=== PATIENT | female | born 1970 | race Caucasian/White ===

== ENCOUNTER 2017-04-24 13:05 | Outpatient (CLI) ==
[2016-07-02 02:01] VITALS: BMI 34.9
== END 2017-04-24 13:06 | disposition home or self-care (01) ==
LOC: CAR 13:05
PROVIDERS: ATTEND Physician Assistant
DX: R40.0 Somnolence (principal)
CPT/HCPCS: 95810

== ENCOUNTER 2017-09-19 18:35 | Emergency (ER) ==
[2017-09-19 18:45] VITALS: BP 173/95; TEMP 99.4; BMI 31.8
--- NOTE | 2017-09-19 19:04 | ED.PDOC ---
General ED Provider: Dr. CHANDA DUCKWORTH-ER Chief Complaint: Shoulder Pain/Injury Stated Complaint: my shoulder hurts to move--i went to [facility] and i was told to take motrin--no hx of injury Time Seen by Physician: 19:02 Mode of Arrival: Walk-In Information Source: Patient Exam Limitations: No limitations Primary Care Provider: NADER WILLIAMSON Nursing and Triage Documentation Reviewed and Agree: Yes Reviewed sepsis parameters & appropriate labs ordered?: Yes System Inflammatory Response Syndrome: Not Applicable Sepsis Protocol: For patient's 13 years and over: Temp is 96.8 and below OR 101 and greater Pulse >90 BPM Resp >20/minute Acutely Altered Mental Status Are patient's symptoms suggestive of a new infection, such as: -Pneumonia -Skin, Soft Tissue -Endocarditis -UTI -Bone, Joint Infection -Implantable Device -Acute Abdominal Infection -Wound Infection -Meningitis -Blood Stream Catheter Infection -Unknown Musculoskeletal Complaint Exam - Shoulder Pain Complaint/Exam Mechanism of Injury: Reports: No known trauma Onset/Duration: 2 weeks Symptoms Are: Still present Timing: Constant Initial Severity: Mild Current Severity: Moderate Location: Reports: Discrete (left shouldsdr) Character: Reports: Dull, Aching, Stiffness Aggravating: Reports: Movement, Lifting, Flexion, Extension, Internal rotation, External rotation Associated Signs and Symptoms: Reports: Swelling, Redness, Bruising, Fever, Weakness, Numbness, Tingling Related History: Reports: Similar episode Tenderness: Present: Rotator cuff muscles Limited Range of Motion: Present: Abduction, Adduction, Flexion, Extension, Internal rotation Differential Diagnoses: Sprain, Strain Review of Systems - Review Of Systems Constitutional: Reports: No symptoms Eyes: Reports: No symptoms Ears, Nose, Mouth, Throat: Reports: No symptoms Respiratory: Reports: No symptoms Cardiac: Reports: No symptoms GI: Reports: No symptoms : Reports: No symptoms Musculoskeletal: Reports: Muscle pain, Muscle stiffness Skin: Reports: No symptoms Neurological: Reports: No symptoms Endocrine: Reports: No symptoms Hematologic/Lymphatic: Reports: No symptoms All Other Systems: Reviewed and Negative Past Medical History - Past Medical History Previously Healthy: Yes Endocrine: Reports: None Cardiovascular: Reports: Hypertension Respiratory: Reports: None Hematological: Reports: None Gastrointestinal: Reports: None Genitourinary: Reports: None Neuro/Psych: Reports: Migraine, Anxiety, Depression Musculoskeletal: Reports: Arthritis, Back Pain Cancer: Reports: None Last Menstrual Period: unknown Other Pertinent Past Medical History: Obesity -JAW PAIN (TMJ), DDD - Surgical History General Surgical History: Reports: Tonsillectomy, Adenoidectomy, Other (PE TUBES BOTH EARS AT AGE 8) - Family History Family History: Reports: None - Social History Smoking Status: Never smoker Hx Substance Use: No Alcohol Screening: Occasionally Physical Exam - Physical Exam Appearance: Well-appearing, No pain distress, Well-nourished Pain Distress: Mild Eyes: DEVORA, EOMI, Conjunctiva clear ENT: Ears normal, Nose normal, Oropharynx normal Neck: Supple Respiratory: Airway patent, Breath sounds clear, Breath sounds equal, Respirations nonlabored Cardiovascular: RRR, Pulses normal, No rub, No murmur GI/: Soft, Nontender, No masses, Bowel sounds normal, No Organomegaly Musculoskeletal: Limited ROM, Limited strength Skin: Warm, Dry, Normal color Neurological: Sensation intact, Motor intact, Reflexes intact, Cranial nerves intact, Alert, Oriented Psychiatric: Affect appropriate, Mood appropriate Interpretation - Radiology Interpretation Radiology Interpretation By: ED Physician Radiology Results: Negative Critical Care Note - Critical Care Note Total Time (mins): 0 Course - Course Orders, Labs, Meds: Orders Category Date Time Status SHOULDER, LEFT MIN 2V Stat RADS 09/19/17 18:40 Ordered Vital Signs: Temp Pulse Resp BP Pulse Ox 09/19/17 18:36 99.4 F 89 20 173/95 H 99 Departure - Departure Time of Disposition: 19:04 Disposition: HOME SELF-CARE Discharge Problem: Shoulder pain Instructions: Shoulder Pain (ED) Condition: Good Pt referred to PMD for follow-up: Yes IPMP verified?: No Additional Instructions: norco 7.5mg q 4hrs prn paini #10---see your pcp and consider mri of the shoulder or referral to ortho Allergies/Adverse Reactions: Allergies quetiapine fumarate [From Seroquel] Adverse Reaction (Verified 09/19/17 18:45) venom-honey bee [bee venom (honey bee)] Adverse Reaction (Verified 09/19/17 18: 45) Home Medications: Ambulatory Orders Lisinopril/Hydrochlorothiazide [Lisinopril-Hctz 20-25 mg Tab] 1 each PO DAILY # 14 tablet 12/01/14 Bupropion HCl [Wellbutrin Sr] 200 mg PO BID 08/23/15 Butalbital/Aspirin/Caffeine [Fiorinal 50-325-40 mg Capsule] 1 each PO BID PRN Lorazepam 1 mg PO TID 07/02/16 Bupropion HCl [Wellbutrin Sr] 200 mg PO BID 09/19/17 Estradiol 1 mg PO DAILY 09/19/17 Disposition Discussed With: Patient
--- NOTE | 2017-09-20 07:25 | DI ---
EXAM: Radiographs, left shoulder HISTORY: Left shoulder pain. COMPARISON: None available. TECHNIQUE: Four views. FINDINGS: Bone mineralization is normal. There is no fracture or dislocation. The joint spaces are maintained. Inferior acromial spur noted which could cause rotator cuff impingement. No focal soft tissue abnormality is seen. IMPRESSION: No fracture or dislocation.
== END 2017-09-19 19:14 | disposition home or self-care (01) ==
LOC: ED 18:35
DX: M25.512 Pain in left shoulder (principal)
CPT/HCPCS: 99282

== ENCOUNTER 2017-09-26 10:24 | Outpatient (CLI) ==
--- NOTE | 2017-09-26 13:59 | MRI ---
EXAM: MRI of the left shoulder without contrast COMPARISON: Left shoulder radiographs 09/19/2017. HISTORY: Left shoulder pain. TECHNIQUE: Multiplanar noncontrast MR images of the left shoulder were acquired using a 1.2 Gilda ma gnet. The submitted images are mildly limited by patient motion artifact. FINDINGS: There is moderately severe supraspinatus as well as mild infraspinatus and subscapularis t endinosis. Tiny partial-thickness/rim rent tear involving the anterior insertional fibers of the sup raspinatus measuring 2 mm medial to lateral dimension. Thinning bursal surface irregularity the supr aspinatus at/lateral to the acromion measuring 1.7 x 0.8 cm extent related bursal surface fraying sup erimposed partial-thickness bursal surface tear. This involves approximately 50% of the tendon thick ness without a full-thickness tear or tendon retraction. Fluid throughout the subacromial/subdeltoid bursa which is most pronounced anteriorly. Moderate diffuse muscle atrophy. Limited assessment of the glenoid labrum on this non arthrographic study. Suspected intrasubstance d egeneration labrum. Mild degenerative changes of the glenohumeral joint without an acute fracture or dislocation. Minimal joint effusion. The long head of the biceps is located within the bicipital groove and is intact. Moderate hypertrophic degenerative changes of the acromioclavicular joint with mild lateral downslopi ng of the acromion and a tiny subacromial spur. No evidence of an os acromiale or abnormal widening of the acromioclavicular joint space. No soft tissue mass identified. IMPRESSION: 1. Rotator cuff tendinosis which is moderately severe involving the supraspinatus. Bursal surface fr aying superimposed partial-thickness bursal surface tear of the supraspinatus at the level of the acr omion. Tiny partial-thickness/rim rent tear of the insertional fibers of the supraspinatus. No full -thickness rotator cuff tear or tendon retraction. 2. Fluid in the subacromial/subdeltoid bursa. 3. Diffuse muscle atrophy. 4. Moderate hypertrophic degenerative changes of the acromioclavicular joint with mild lateral downs loping of the acromion representing potential sources of subacromial impingement. 5. Suspected intrasubstance degeneration of the glenoid labrum on this non arthrographic study.
== END 2017-09-26 10:25 | disposition home or self-care (01) ==
LOC: RAD 10:24
PROVIDERS: ATTEND Nurse Practitioner Family
DX: M25.512 Pain in left shoulder (principal); M25.612 Stiffness of left shoulder, not elsewhere classified

== ENCOUNTER 2017-11-03 15:00 | Outpatient (RCR) ==
--- NOTE | 2017-10-16 10:43 | RS.OPPTEV2 ---
Date of Note: 10/12/17 Visit #: 1 Date of Evaluation: 10/12/17 Payer Source: Medicaid Treatment Diagnosis: Shoulder pain History of Condition/Mechanism of Injury:: Patient reports shoulder pain began in the first part of September. Reports no known injury. States she went to the ER due to pain. Prior Level of Function.....Patient was independent with: ADL's, Self Care, Caregiving, Ambulation/Mobility, Community Integration/Access Functional Limitations: Sleep, Self Care, ADL's, Reaching, Pushing, Pulling, Lifting, Carrying, Community Access/Integration Current Subjective/complaints:: Patient reports pain in both shoulders. States she had no injury to either shoulder. States she had tests on both shoulders. Reports her original order for therapy was for the right shoulder. States the current order is for the left shoulder. States she is taking Ibuprofen for pain. She took some prior to her appointment today. Reports she has limited motion due to pain. States it is difficult for her to wash her back or under her arms because of shoulder pain and limited motion. Also reports times of pain when turning the steering wheel. Patient mentions having a spur in the left shoulder multiple times. She received an injection in the left shoulder on 10/04/17. States it did not seem to help much. Treatment Side (optional): Bilateral Medical History Medical History: Hypertension Smoking Status: Never smoker Diagnostic Testing/Imaging:: MRI of left shoulder from 09/26/17 in EMR. Shows RTC tendinosis which is moderately severe involving the supraspinatus. Bursal surface fraying. Tiny partial thickness/rim rent tear of the insertional fibers of the supraspinatus. Hx Home Medications: Lisinopril,HCTZ,Wellbutrin,Elavil, Lorazepam, Zanaflex, Fioricet Patient's Goals: Her goal is to get relief of shoulder pain. Pain Assessment - Pain Description Pain Location: bilateral shoulders, states pain is equally in the left and right shoulders Current Pain Intensity: 8/10 Worst Pain Intensity: 10/10 Functional Outcome Measure UE Functional Index: 14 (=82.5% impairment) - G Codes & Severity Modifier G Codes & Modifier: NA Source of G Code score: NA Observation - Observation Posture: Forward Head, Rounded Shoulders, Scapula Asymmetry Comments: Left scapula is elevated and demonstrates winging at the inferior angle. Handedness: Right - Left Shoulder ROM Left Shoulder Flexion: 120 (degrees AROM) Left Shoulder Extension: 50 (degrees AROM) Left Shoulder Abduction: 100 (degrees AROM) Left Shoulder Internal Rotation: 40 (degrees AROM) Left Shoulder External Rotation: 30 (degrees AROM) Left Shoulder ROM Limitations: Pain Comments: Passive ROM left shoulder: flexion 140 degrees, abduction 110 degrees , ER 45 degrees in neutral, ER 10 degrees in abduction. PROM is reportedly less painful than AROM. Soft endfeel present at end range. Scapulothoracic joint is hypomobile. - Right Shoulder ROM Right Shoulder Flexion: 130 (degrees AROM) Right Shoulder Extension: 50 (degrees AROM) Right Shoulder Abduction: 104 (degrees AROM) Right Shoulder Internal Rotation: 60 (degrees AROM) Right Shoulder External Rotation: 50 (degrees AROM) Right Shoulder ROM Limitations: Pain Comments: Passive ROM: flexion ~150 degrees, abduction 110-115 degrees, ER 60 degrees in neutral. Reports less pain with PROM. Demonstrates soft endfeel at end range with PROM in all directions. - Left Shoulder Strength Left Shoulder Flexion: 4- Good- Left Shoulder Extension: 4 Good Left Shoulder Abduction: 4- Good- Left Shoulder Adduction: 4 Good Left Shoulder External Rotation: 4- Good- Left Shoulder Internal Rotation: 4- Good- Comments: Reports most pain with MMT left shoulder abduction. - Right Shoulder Strength Right Shoulder Flexion: 4+ Good + Right Shoulder Extension: 4+ Good + Right Shoulder Abduction: 4 Good Right Shoulder Adduction: 4+ Good + Right Shoulder External Rotation: 4 Good Right Shoulder Internal Rotation: 4 Good - Special Tests Shoulder Empty Can (Supraspinatus) Test: Negative Right, Positive Left Shoulder Speed's Sign Test: Negative Right, Positive Left Shoulder Drop Arm Test: Negative Left, Negative Right Shoulder Sutherland-Bryon Impingement Test: Positive Left, Positive Right Palpation Comments:: Patient reports tenderness with palpation to the left shoulder at the anterior region of the shoulder and over the insertion site of the supraspinatus tendon. Reports mild tenderness generally of the right shoulder, with no point specific tenderness. Sensation - Sensation Right Upper Extremity: Intact/Normal Left Upper Extremity: Intact/Normal Interventions - Exercise/Activities/Manual Therapy Exercises/Activities: Patient instructed in exercises for home of pendulum, scapular retraction, passive shoulder flexion and ER at a table. Manual Therapy: NA HOME EXERCISE PROGRAM: pendulum, scapular retraction, passive shoulder flexion and ER at a table. - Charges Timed Code Treatment Minutes: 0 Total Treatment Time: 45 mins Procedures billed for this date of service:: KENY medium EVALUATION COMPLEXITY LEVEL EVALUATION COMPLEXITY LEVEL: HISTORY: Medium, EXAM OF BODY SYSTEMS: Medium ( difficulty w/ selfcare, ADL's, sleep, driving), CLINICAL PRESENTATION: Medium, CLINICAL DECISION MAKING: Medium Assessment Assessment: Patient presents to therapy with diagnosis of shoulder pain. Today she presents with reports of pain in both shoulders and is hoping to have them both addressed. She exhibits limited AROM and PROM due to reports of pain. Reports pain and difficulty with selfcare and ADL's due to these limitations. She exhibits symptoms of RTC tendinopathy and will benefit from modalities and exercises to improve RTC strength and function. Patient Education: Education of diagnosis, Body/Joint mechanics, Home Exercise Program, Home Safety, Activity Modification, Education of Plan of Care Rehab Potential: Good Short Term Goals Goal #1: Pt independent in and compliant with HEP. Goal to be met by: 10/27/17 Goal #2: Patient to demonstrate improved postural awareness. Goal to be met by: 10/27/17 Goal #3: Shoulder pain bilaterally less than 8/10 with activity. Goal to be met by: 10/27/17 Tail Sawyer Goals Goal #1: Pt knows HEP and to continue ex's to maintain functional level at D/C. Goal to be met by: 11/22/17 Goal #2: Score on UE functional Index improved to 34/80 or better. Goal to be met by: 11/22/17 Goal #3: Pt able to wash all areas of body in shower with minimal pain/ limitation Goal to be met by: 11/22/17 Goal #4: Pt able to sleep at night with minimal interruption from shoulder pain. Goal to be met by: 11/22/17 Plan - Treatment to be Provided Procedures: Therapeutic Exercises, Therapeutic Activity, Manual Therapy, Patient Education Modalities: Electrical Stimulation, Ultrasound/Phonophoresis, Cryotherapy, Hot Packs - Treatment Plan Frequency: 3 X week Duration: 4 weeks ORDER # VISITS AND/OR THROUGH DATE: 11/22/17 - Treatment Code (1) Shoulder pain, bilateral Code(s): M25.511 - PAIN IN RIGHT SHOULDER Qualifiers: Chronicity: acute Qualified Code(s): M25.511 - Pain in right shoulder; M25.512 - Pain in left shoulder; M25.512 - Pain in left shoulder (2) Shoulder stiffness Qualifiers: Laterality: right Qualified Code(s): M25.611 - Stiffness of right shoulder , not elsewhere classified (3) Shoulder stiffness Qualifiers: Laterality: left Qualified Code(s): M25.612 - Stiffness of left shoulder, not elsewhere classified (4) Subacromial impingement of left shoulder Code(s): M75.42 - IMPINGEMENT SYNDROME OF LEFT SHOULDER Comments: M75.42
--- NOTE | 2017-10-16 16:41 | RS.OPPTDN ---
Subjective Date of Note: 10/16/17 Visit #: 2 Date of Evaluation: 10/12/17 Payer Source: Medicaid Treatment Diagnosis: Shoulder pain Current Subjective/complaints:: Patient says her R shoulder is hurting her more today. Reports pain is severe and is actually worse than at her eval. She says she takes ibuprofen for pain and has felt relief with trying pendulum exercises. - Treatment Modality: Ultrasound Parameters/Method Applied: continuous @ 1.5 w/cm2 x 8 mins each shoulder joint ( mainly along the mid deltoid and UT per patient c/o's) Patient Position: Sitting - Heat/Cryotherapy Treatment: Hot Pack (10 mins each shoulder while supine) Interventions - Exercise/Activities/Manual Therapy Exercises/Activities: Patient receives PROM all directions bilaterally. Manual isometrics all dir of the shoulders 2x5. Shoulder shrugs, scap adduction, pulleys x 2 mins with intermittent static holds. Total minutes of Exercise: 24 Manual Therapy: NA HOME EXERCISE PROGRAM: pendulum, scapular retraction, passive shoulder flexion and ER at a table. - Charges Timed Code Treatment Minutes: 40 Total Treatment Time: 55 Procedures billed for this date of service:: hp, u/s, ex2 Assessment: Patient presents with severe bilateral shoulder pain indicating it is worse than at evaluation. She is able to ana paula u/s and therex well with admitting sitting for activity is more comfortable than supine. She is able to ana paula all ROM passively to WFL. 4-/5 for all isometrics. Pulleys ana paula well also admitting relief with self static stretches. She should benefit from further modalities and therex for bilateral shoulders. Patient Education: Education of diagnosis, Body/Joint mechanics, Home Exercise Program Patient demonstrates compliance with HEP?: Yes Short Term Goals Goal #1: Pt independent in and compliant with HEP. Goal to be met by: 10/27/17 Progress towards Goal:: Progressing Goal #2: Patient to demonstrate improved postural awareness. Goal to be met by: 10/27/17 Goal #3: Shoulder pain bilaterally less than 8/10 with activity. Goal to be met by: 10/27/17 Telecom Network Manager Goals Goal #1: Pt knows HEP and to continue ex's to maintain functional level at D/C. Goal to be met by: 11/22/17 Goal #2: Score on UE functional Index improved to 34/80 or better. Goal to be met by: 11/22/17 Goal #3: Pt able to wash all areas of body in shower with minimal pain/ limitation Goal to be met by: 11/22/17 Goal #4: Pt able to sleep at night with minimal interruption from shoulder pain. Goal to be met by: 11/22/17 Plan PLAN OF CARE EXPIRES ON:: 11/22/17 ORDER # VISITS AND/OR THROUGH DATE: 11/22/17 PLAN: Patient to continue BIW x 4 more sessions per order
--- NOTE | 2017-10-19 15:50 | RS.CXNS ---
Date of scheduled appointment: 10/19/17 Type: Cancel Reason for Cancel/NS: not feeling well
--- NOTE | 2017-10-25 16:32 | RS.OPPTDN ---
Subjective Date of Note: 10/25/17 Visit #: 3 Date of Evaluation: 10/12/17 Payer Source: Medicaid Treatment Diagnosis: Shoulder pain Current Subjective/complaints:: Patient says she was sick last week and missed an appt. She says she is unable to tell if treatment relieved her pain. - Treatment Modality: Ultrasound Parameters/Method Applied: continuous @ 1.5 w/cm2 x 9 mins each mid and posterior deltoid Patient Position: Sitting - Heat/Cryotherapy Treatment: Hot Pack (15 mins each shoulder in supine) Interventions - Exercise/Activities/Manual Therapy Exercises/Activities: Patient receives PROM all directions bilaterally. Manual isometrics all dir of the shoulders 2x5. Shoulder shrugs, scap adduction, 1# wand for bilateral shoulder flexion x 10. Pulleys x 2 mins with intermittent static holds. Total minutes of Exercise: 28 Manual Therapy: NA HOME EXERCISE PROGRAM: pendulum, scapular retraction, passive shoulder flexion and ER at a table. - Charges Timed Code Treatment Minutes: 46 Total Treatment Time: 61 Procedures billed for this date of service:: hp, u/s, ex2 Assessment: Patient admits significant improvement with pain to the R shoulder and mobility after treatment today, but feels L shoulder pain is elevated by exercises and when fastening undergarments. She had tenderness to the L mid deltoid during u/s. Passively, patient able to achieve near WNL for the L and WNL for R. Actively, patient mostly limited with L IR. She rates R shoulder pain 0/10 and L 7/10 after therex. Patient Education: Education of diagnosis, Body/Joint mechanics, Home Exercise Program Patient demonstrates compliance with HEP?: Yes Short Term Goals Goal #1: Pt independent in and compliant with HEP. Goal to be met by: 10/27/17 Progress towards Goal:: Progressing Goal #2: Patient to demonstrate improved postural awareness. Goal to be met by: 10/27/17 Goal #3: Shoulder pain bilaterally less than 8/10 with activity. Goal to be met by: 10/27/17 Assisted Goals Goal #1: Pt knows HEP and to continue ex's to maintain functional level at D/C. Goal to be met by: 11/22/17 Goal #2: Score on UE functional Index improved to 34/80 or better. Goal to be met by: 11/22/17 Goal #3: Pt able to wash all areas of body in shower with minimal pain/ limitation Goal to be met by: 11/22/17 Goal #4: Pt able to sleep at night with minimal interruption from shoulder pain. Goal to be met by: 11/22/17 Plan PLAN OF CARE EXPIRES ON:: 11/22/17 ORDER # VISITS AND/OR THROUGH DATE: 11/22/17 PLAN: Patient to attend BIW for 3 more sessions per order
--- NOTE | 2017-10-27 16:30 | RS.OPPTDN ---
Subjective Date of Note: 10/27/17 Visit #: 4 Date of Evaluation: 10/12/17 Payer Source: Medicaid Treatment Diagnosis: Shoulder pain Current Subjective/complaints:: Patient c/o both shoulders hurting more today. She says she may be rolling over to lay on the shoulder at night. Reports long history of insomnia that is unrelated to shoulder pain. Her c/c is L shoulder along the mid deltoid region and posteriorally. Pain Assessment - Pain Description Pain Location: R and L shoulder, but L is c/c Pain Description: Throbbing, Aching - Treatment Modality: Ultrasound Parameters/Method Applied: continuous @ 1.5 w/cm2 x 6 mins to the R shoulder. Pulsed @ 0.6 w/cm2 20% duty cycle to the L posterior and lateral portion of the shoulder x 12 mins Patient Position: Sitting - Heat/Cryotherapy Treatment: Hot Pack (bialteral shoulders in supine, then changed to sitting x 15 mins) Interventions - Exercise/Activities/Manual Therapy Exercises/Activities: Patient performs only pendulum and pulleys today due to such increase in pain to the L shoulder. Patient was encouraged to perform pendulum and scap retraction for home over the weekend and use ice particularly for the L. Total minutes of Exercise: 5 Manual Therapy: NA HOME EXERCISE PROGRAM: pendulum, scapular retraction, passive shoulder flexion and ER at a table. - Charges Timed Code Treatment Minutes: 23 Total Treatment Time: 38 Procedures billed for this date of service:: hp, u/s, Assessment: Patient presents with c/o increased pain, but when beginning u/s, expresses R shoulder is not hurting, but the L is severe. She admits feeling relief with pulsed u/s to the L today. She is unable to sleep beyond a few hours at night and may be rolling over to the L shoulder causing increased pain. She also says she has been cycling Tylenol and Ibuprofen for relief. ROM is WNL for the R, but limited to WFL for flexion for the L with pain and mobility limitations more greatly for IR. Patient Education: Home Exercise Program, Activity Modification Patient demonstrates compliance with HEP?: Yes Short Term Goals Goal #1: Pt independent in and compliant with HEP. Goal to be met by: 10/27/17 Progress towards Goal:: Progressing Goal #2: Patient to demonstrate improved postural awareness. Goal to be met by: 10/27/17 Goal #3: Shoulder pain bilaterally less than 8/10 with activity. Goal to be met by: 10/27/17 Power Transmission Engineer Goals Goal #1: Pt knows HEP and to continue ex's to maintain functional level at D/C. Goal to be met by: 11/22/17 Goal #2: Score on UE functional Index improved to 34/80 or better. Goal to be met by: 11/22/17 Goal #3: Pt able to wash all areas of body in shower with minimal pain/ limitation Goal to be met by: 11/22/17 Goal #4: Pt able to sleep at night with minimal interruption from shoulder pain. Goal to be met by: 11/22/17 Plan PLAN OF CARE EXPIRES ON:: 11/22/17 ORDER # VISITS AND/OR THROUGH DATE: 11/22/17 PLAN: Patient to continue for therex to bilateral UE's and utilize pulsed u/s to verify any change to the L shoulder.
--- NOTE | 2017-10-31 15:40 | RS.OPPTDN ---
Subjective Date of Note: 10/31/17 Visit #: 5 Date of Evaluation: 10/12/17 Payer Source: Medicaid Treatment Diagnosis: Shoulder pain Current Subjective/complaints:: Patient says she took an Ibuprofen before coming to PT, so her pain is not too bad. She says that she does not have any pain at present. Pain Assessment - Pain Description Pain Location: none, took Ibuprofen prior to PT appt - Treatment Modality: Ultrasound Parameters/Method Applied: pulsed to bilateral shoulders @ 20% duty cycle, 0.6 w /cm2 x 8 mins each Patient Position: Sitting - Heat/Cryotherapy Treatment: Hot Pack (15 mins to bilateral shoulders in supine) Interventions - Exercise/Activities/Manual Therapy Exercises/Activities: Patient receives PROM all dir both shoulders in sitting. Manual isometrics all dir 2x5 bilaterally. 1# wand for bilateral shoulder flexion and L shoulder abd due to limited range compared to R x 10 reps. ER with 1# wand bilaterally x 8. Red tband for scap retraction 2x10. Total minutes of Exercise: 24 Manual Therapy: NA HOME EXERCISE PROGRAM: pendulum, scapular retraction, passive shoulder flexion and ER at a table. - Charges Timed Code Treatment Minutes: 40 Total Treatment Time: 55 Procedures billed for this date of service:: hp, u/s, ex Assessment: Patient ana paula all treatment much better today than previous session. She is actually pain free at appt time with taking Ibuprofen, but admits pain level has been much lower since her previous session. She is able to demo full PROM for the R shoulder and L flexion is WNL, but tight with ABD and IR to WFL passively. However, this limitation is improved with wand exercises through [facility]. Patient Education: Home Exercise Program, Education of Plan of Care Patient demonstrates compliance with HEP?: Yes Short Term Goals Goal #1: Pt independent in and compliant with HEP. Goal to be met by: 10/27/17 Progress towards Goal:: Met Goal #2: Patient to demonstrate improved postural awareness. Goal to be met by: 10/27/17 Progress towards Goal:: Progressing Goal #3: Shoulder pain bilaterally less than 8/10 with activity. Goal to be met by: 10/27/17 Progress towards Goal:: Met Shipping Receiving Clerk Goals Goal #1: Pt knows HEP and to continue ex's to maintain functional level at D/C. Goal to be met by: 11/22/17 Progress towards goal: Progressing Goal #2: Score on UE functional Index improved to 34/80 or better. Goal to be met by: 11/22/17 Goal #3: Pt able to wash all areas of body in shower with minimal pain/ limitation Goal to be met by: 11/22/17 Progress towards goal: Progressing Goal #4: Pt able to sleep at night with minimal interruption from shoulder pain. Goal to be met by: 11/22/17 Plan PLAN OF CARE EXPIRES ON:: 11/22/17 ORDER # VISITS AND/OR THROUGH DATE: 11/22/17 PLAN: Patient to attend x 1 more session per order/approval
--- NOTE | 2017-11-06 14:40 | RS.OPPTDN ---
Subjective Date of Note: 11/03/17 Visit #: 6 Date of Evaluation: 10/12/17 Payer Source: Medicaid Treatment Diagnosis: Shoulder pain Current Subjective/complaints:: Patient says she barely has pain to the R shoulder anymore. L shoulder is improving with pain level being more mild and is able to see some improvement also in ADLs, however she is not specific. - Treatment Modality: Ultrasound Parameters/Method Applied: pulsed @ 20% duty cycle, 0.6 w/cm2 x 10 mins to the L posterior shoulder and upper arm along the mid deltoid. Patient Position: Sitting - Heat/Cryotherapy Treatment: Hot Pack (bilateral shoulders in supine x 15 mins) Interventions - Exercise/Activities/Manual Therapy Exercises/Activities: Patient receives PROM (primarily to the L) all dir both shoulders in sitting. Manual isometrics all dir 2x5 bilaterally. 1# wand for bilateral shoulder flexion x 10 reps in sitting. ER and ABD with 1# wand bilaterally x 8. Red tband for scap retraction 2x10. Shoulder shrugs and eduction on continuing with postural techniques and exercises to improve at home. UE Functional Index reassessed. Total minutes of Exercise: 22 Manual Therapy: NA HOME EXERCISE PROGRAM: pendulum, scapular retraction, passive shoulder flexion and ER at a table. - Charges Timed Code Treatment Minutes: 32 Total Treatment Time: 47 Procedures billed for this date of service:: hp, u/s, ex Assessment: Patient now demo 39% impairment or 49/80 compared to eval of 82% impairment and 14/80. She reports little to no R shoulder pain, but mild to moderate L shoulder pain. Pain is mostly posterior and lateral. R shoulder ROM is grossly WNL passively and WFL actively. L shoulder is 155 degrees flexion passively, 135 degrees ABD passively. Actively, L shoulder is 135 degrees FLEX and 125 degrees ABD. Patient Education: Education of diagnosis, Home Exercise Program, Education of Plan of Care Patient demonstrates compliance with HEP?: Yes Short Term Goals Goal #1: Pt independent in and compliant with HEP. Goal to be met by: 10/27/17 Progress towards Goal:: Met Goal #2: Patient to demonstrate improved postural awareness. Goal to be met by: 10/27/17 Progress towards Goal:: Met Goal #3: Shoulder pain bilaterally less than 8/10 with activity. Goal to be met by: 10/27/17 Progress towards Goal:: Met Senior Living Goals Goal #1: Pt knows HEP and to continue ex's to maintain functional level at D/C. Goal to be met by: 11/22/17 Progress towards goal: Met Goal #2: Score on UE functional Index improved to 34/80 or better. Goal to be met by: 11/22/17 Progress towards goal: Met Comments: 49/80 Goal #3: Pt able to wash all areas of body in shower with minimal pain/ limitation Goal to be met by: 11/22/17 Progress towards goal: Partially Met Comments: limited by L shoulder pain at times Goal #4: Pt able to sleep at night with minimal interruption from shoulder pain. Goal to be met by: 11/22/17 Progress towards goal: Progressing Plan PLAN OF CARE EXPIRES ON:: 11/22/17 ORDER # VISITS AND/OR THROUGH DATE: 11/22/17 PLAN: Patient to work on HEP independently. She has attended all approved visits at this time.
== END 2017-11-04 ==
PROVIDERS: ATTEND Orthopaedic Surgery
DX: M25.512 Pain in left shoulder (principal)